=== PATIENT | male | born 1950 | race African-American/Black ===

== ENCOUNTER 2019-01-18 10:05 | Emergency (ER) | payer MEDICARE, MEDICAID ==
[~2019-01-18] VITALS: Ht 180.3 cm; Wt 118.0 kg
[2019-01-18 16:47] VITALS: BP 135/75
== END 2019-01-18 16:56 | disposition home or self-care (01) ==
LOC: ER 10:05
DX: F10.129 Alcohol abuse with intoxication, unspecified (principal); I51.9 Heart disease, unspecified; F17.200 Nicotine dependence, unspecified, uncomplicated; Y90.9 Presence of alcohol in blood, level not specified
CPT/HCPCS: 36415; 80320; 99283; G0480